=== PATIENT | female | born 1980 | race Caucasian/White ===

== ENCOUNTER 2016-06-12 03:04 | Inpatient (IN) | payer BC ==
[2016-06-12] VITALS (7 sets, daily range): BP systolic 94–138; BP diastolic 48–80
[~2016-06-12] VITALS: Ht 162.6 cm; Wt 63.5 kg
[~2016-06-12 03:04] MED LIST: NKM
[2016-06-12] MEDS ORDERED: LORazepam Inj 2mg/ml 1ml ONE (03:21)
[2016-06-12] MEDS ORDERED: NS 250 ML IV ONE (03:23)
[2016-06-12] MEDS ORDERED: LORazepam Inj 2mg/ml 1ml IV ONE ×2 (03:30→06:15)
[2016-06-12 03:49] LABS: BASOPHILS % (AUTO) 1.5 % (0.0-2.0); EOSINOPHILS % (AUTO) 3.8 % (0.0-3.0); LYMPHOCYTES % (AUTO) 25.9 % (20.0-45.0); MEAN CORPUSCULAR HEMOGLOBIN 31.1 PG (27.0-31.0); MEAN CORPUSCULAR HGB CONC 34.8 G/DL (32.0-36.0); MEAN CORPUSCULAR VOLUME 89 FL (80-99); MEAN PLATELET VOLUME 6.8 FL (6.5-10.1); MONOCYTES % (AUTO) 7.8 % (1.0-10.0); PLATELET COUNT 234 K/UL (150-450); RED BLOOD COUNT 4.19 M/UL (4.20-5.40); RED CELL DISTRIBUTION WIDTH 10.9 % (11.6-14.8); WHITE BLOOD COUNT 7.1 K/UL (4.8-10.8)
[2016-06-12 03:52] LABS: ALANINE AMINOTRANSFERASE 11 U/L (3-33); ALBUMIN/GLOBULIN RATIO 1.5 (1.0-2.7); ANION GAP 21 (5-15); ASPARTATE AMINO TRANSFERASE 24 U/L (5-40); CALCIUM 8.2 mg/dL (8.6-10.2); CARBON DIOXIDE 16 mEQ/L (20-30); CHLORIDE 89 mEQ/L (98-107); CREATININE 0.7 mg/dL (0.5-0.9); GLOMERULAR FILTRATION RATE > 60 mL/min (>60); HEMOLYSIS 93; POTASSIUM 4.1 mEQ/L (3.4-4.9); SODIUM 126 mEQ/L (135-145); TOTAL PROTEIN 5.9 g/dL (6.6-8.7)
--- NOTE | 2016-06-12 04:38 | Emergency Room Report ---
History of Present Illness General Chief Complaint: Seizure Source: Patient, Family Member Present Illness HPI 35YOF presents with 2 witnessed seizures, 12:45am and 3am, witnessed by partner. Started with hand jerking, progressed to foaming at mouth, rigidity, eyes rolling. Patient has had a seizure "in years." Had been previously weaned off Seizure medications by PMD. Denies drinking ETOH, other drug use. Denies incontinence, trauma, tongue bitting. Currently feels nauseated. Per partner, patient "drank a lot of juice" only today. No food or water. Part of a one-day "cleanse." Allergies: Coded Allergies: No Known Allergies (Unverified , 06/12/16) Patient History Past Medical History: seizures Past Surgical History: none Pertinent Family History: none Social History: Denies: alcohol use, drug use, smoking Last Menstrual Period: last week Now: No Immunizations: UTD Reviewed Nursing Documentation: PMH: Agreed, PSxH: Agreed Nursing Documentation-PMH Past Medical History: No History, Except For Hx Seizures: Yes Review of Systems All Other Systems: negative except mentioned in HPI Physical Exam Vital Signs Date Time Temp Pulse Resp B/P Pulse Ox O2 Delivery O2 Flow Rate FiO2 06/12/16 02:52 98.4 106 16 117/74 99 Room Air Sp02 EP Interpretation: reviewed, normal General Appearance: normal inspection, well appearing, no apparent distress, non-toxic, Postictal Head: normocephalic, atraumatic Eyes: bilateral eye EOMI, bilateral eye PERRL ENT: normal ENT inspection, hearing grossly normal, normal voice Neck: normal inspection, full range of motion, supple, no bony tend Respiratory: normal inspection, lungs clear, normal breath sounds, no respiratory distress, no retraction, no wheezing Cardiovascular #1: regular rate, rhythm, no edema Gastrointestinal: normal inspection, normal bowel sounds, non tender, soft, no guarding, no hernia Genitourinary: no CVA tenderness Musculoskeletal: normal inspection, back normal, normal range of motion, Devyn' s Sign negative Neurologic: normal inspection, alert, responsive, tonal regulator III-XII nml as tested, motor strength/tone normal, speech normal Psychiatric: normal inspection, judgement/insight normal, mood/affect normal Skin: normal inspection Lymphatic: normal inspection Medical Decision Making Diagnostic Impression: Primary Impression: Seizure disorder Additional Impression: Hyponatremia ER Course 35YOF with acute seizure episodes. Known epilepsy history. VSS. Afebrile Patient was post-ictal but started to become tremulous in ED, was given 1mg Ativan Labs notable for hypoNa 126 - likely hyponatremic from increased juice intake and subsequent polyuria Additional NS 1L given in ED Endorsed for tele admission Likely needs to restart Anti epileptic meds, see Neurology Endorsed to Dr Sanchez for tele admit at 538am EKG Diagnostic Results Rate: normal Rhythm: NSR ST Segments: no acute changes ASA given to the pt in ED: No Rhythm Strip Diag. Results EP Interpretation: yes Rate: 83 Rhythm: NSR, no PVC's, no ectopy Last Vital Signs Date Time Temp Pulse Resp B/P Pulse Ox O2 Delivery O2 Flow Rate FiO2 06/12/16 03:49 98.4 84 14 98/68 95 Room Air Status: improved Disposition: ADMITTED INPATIENT Condition: Serious Referrals: NOT CHOSEN IPA/,REFERRING (PCP) HANS GODDARD M.D. Jun 12, 2016 04:38
[2016-06-12 06:05] LABS: APPEARANCE,URINE SLIGHTLY CLOUDY; KETONES,URINE 1+ (NEGATIVE); LEUKOCYTE ESTERASE ,URINE 1+ (NEGATIVE); NITRITE,URINE NEGATIVE (NEGATIVE); PH,URINE 7 (4.5-8.0); PROTEIN,URINE 1+ (NEGATIVE); UROBILINOGEN,URINE NORMAL MG/DL (0.0-1.0)
[2016-06-12] MEDS ORDERED: levETIRAcetam 1,000 MG in D5W 110 ML IVPB STA (06:11)
[2016-06-12] MEDS ORDERED: levETIRAcetam 500mg vial IV ONE ×2 (06:15→06:16)
[2016-06-12 06:17] LABS: BACTERIA,URINE FEW /HPF; RBC,URINE TNTC /HPF (0 - 2); SQUAMOUS EPITHELIAL CELL,UR FEW /LPF (NONE/OCC)
[2016-06-12] MEDS ORDERED: Tubing IV Cassette IV ONE (07:31)
[2016-06-12] MEDS ORDERED: NS 55 ML IV ONE (07:31)
[2016-06-12] MEDS ORDERED: cefTRIAXone 1 GM in D5W 55 ML IVPB ONE (07:45)
[2016-06-12] MEDS ORDERED: LORazepam Inj 2mg/ml 1ml IV PRN (08:30)
[2016-06-12] MEDS ORDERED: Morphine Sulfate 2mg/ml Inj IVP PRN (08:30)
[2016-06-12] MEDS ORDERED: Miralax 17gm pkt ORAL PRN (09:00)
[2016-06-12] MEDS: Heparin 5000 units/ml inj SUBQ SCH ×3 (09:00→22:22)
[2016-06-12] MEDS ORDERED: Mylanta II UD 30ml ORAL PRN (09:00)
[2016-06-12 10:00] LABS: URIC ACID 5.1 mg/dL (3.0-7.5)
[2016-06-12 10:11] LABS: THYROID STIMULATING HORMONE 1.18 uIU/mL (0.300-4.500)
--- NOTE | 2016-06-12 10:43 | Consultation ---
Consult Note Consult Note asked to eval for hypoNatremia Chief Complaint: Seizure 35YOF presents with 2 witnessed seizures, 12:45am and 3am, witnessed by partner. Started with hand jerking, progressed to foaming at mouth, rigidity, eyes rolling. Patient has had a seizure "in years." Had been previously weaned off Seizure medications by PMD. Denies drinking ETOH, other drug use. Denies incontinence, trauma, tongue bitting. Currently feels nauseated. Per partner, patient "drank a lot of juice" only today. No food or water. Part of a one-day "cleanse." Allergies: Coded Allergies: No Known Allergies (Unverified , 06/12/16) Past Medical History: seizures Social History: Denies: alcohol use, drug use, smoking Last Menstrual Period: last week Now: No Past Medical History: No History, Except For Hx Seizures: Yes Assessment/Plan HypoNatremia likely depletional Sz Plan: U na U Os Serum Uric acid saline infusion check Mag per Neuro Urine tox NEGATIVE RAVINDRA JOHNSON Jun 12, 2016 10:42
--- NOTE | 2016-06-12 12:17 | Neurology Progress Note ---
Objective Physical Exam Last Vital Signs Date Time Temp Pulse Resp B/P Pulse Ox O2 Delivery O2 Flow Rate FiO2 06/12/16 08:37 97.9 104 18 117/80 99 Room Air 06/12/16 07:17 2.0 Laboratory Tests Test 06/12/16 03:15 06/12/16 05:01 06/12/16 08:30 White Blood Count 7.1 K/UL (4.8-10.8) Red Blood Count 4.19 M/UL (4.20-5.40) L Hemoglobin 13.1 G/DL (12.0-16.0) Hematocrit 37.5 % (37.0-47.0) Mean Corpuscular Volume 89 FL (80-99) Mean Corpuscular Hemoglobin 31.1 PG (27.0-31.0) H Mean Corpuscular Hemoglobin Concent 34.8 G/DL (32.0-36.0) Red Cell Distribution Width 10.9 % (11.6-14.8) L Platelet Count 234 K/UL (150-450) Mean Platelet Volume 6.8 FL (6.5-10.1) Neutrophils (%) (Auto) 61.0 % (45.0-75.0) Lymphocytes (%) (Auto) 25.9 % (20.0-45.0) Monocytes (%) (Auto) 7.8 % (1.0-10.0) Eosinophils (%) (Auto) 3.8 % (0.0-3.0) H Basophils (%) (Auto) 1.5 % (0.0-2.0) Sodium Level 126 mEQ/L (135-145) L Potassium Level 4.1 mEQ/L (3.4-4.9) Chloride Level 89 mEQ/L (98-107) L Carbon Dioxide Level 16 mEQ/L (20-30) L Anion Gap 21 (5-15) H Blood Urea Nitrogen 4 mg/dL (7-23) L Creatinine 0.7 mg/dL (0.5-0.9) Estimat Glomerular Filtration Rate > 60 mL/min (>60) Glucose Level 120 mg/dL (74-106) H Calcium Level 8.2 mg/dL (8.6-10.2) L Total Bilirubin 0.6 mg/dL (0.0-1.2) Aspartate Amino Transf (AST/SGOT) 24 U/L (5-40) Alanine Aminotransferase (ALT/SGPT) 11 U/L (3-33) Alkaline Phosphatase 28 U/L (35-104) L Total Protein 5.9 g/dL (6.6-8.7) L Albumin 3.6 g/dL (3.5-5.2) Globulin 2.3 g/dL Albumin/Globulin Ratio 1.5 (1.0-2.7) Urine Color Pale yellow Urine Appearance Slightly cloudy Urine pH 7 (4.5-8.0) Urine Specific [place] 1.010 (1.005-1.035) Urine Protein 1+ (NEGATIVE) H Urine Glucose (UA) Negative (NEGATIVE) Urine Ketones 1+ (NEGATIVE) H Urine Occult Blood 5+ (NEGATIVE) H Urine Nitrite Negative (NEGATIVE) Urine Bilirubin Negative (NEGATIVE) Urine Urobilinogen Normal MG/DL (0.0-1.0) Urine Leukocyte Esterase 1+ (NEGATIVE) H Urine RBC Tntc /HPF (0 - 2) H Urine WBC 5-10 /HPF (0 - 2) H Urine Squamous Epithelial Cells Few /LPF (NONE/OCC) Urine Bacteria Few /HPF (NONE) Urine HCG, Qualitative Negative Urine Opiates Screen Negative (NEGATIVE) Urine Barbiturates Screen Negative (NEGATIVE) Phencyclidine (PCP) Screen Negative (NEGATIVE) Urine Amphetamines Screen Negative (NEGATIVE) Urine Benzodiazepines Screen Negative (NEGATIVE) Urine Cocaine Screen Negative (NEGATIVE) Urine Marijuana (THC) Screen Negative (NEGATIVE) Plasma/Serum Osmolality Pending Uric Acid 5.1 mg/dL (3.0-7.5) Magnesium Level 1.8 mg/dL (1.7-2.5) Thyroid Stimulating Hormone (TSH) 1.180 uIU/mL (0.300-4.500) Free Thyroxine 1.04 ng/dL (0.86-1.85) Free Triiodothyronine Pending Cortisol Pending Impression/Recommendations Problems: (1) Seizure disorder (2) Hyponatremia Status: unchanged Recommendations # [id number] CHELITA WILSON Jun 12, 2016 12:17
[2016-06-12 12:23] LABS: APPEARANCE,URINE CLEAR; KETONES,URINE 2+ (NEGATIVE); LEUKOCYTE ESTERASE ,URINE NEGATIVE (NEGATIVE); NITRITE,URINE NEGATIVE (NEGATIVE); PH,URINE 7 (4.5-8.0); PROTEIN,URINE NEGATIVE (NEGATIVE); UROBILINOGEN,URINE NORMAL MG/DL (0.0-1.0)
[2016-06-12 12:39] LABS: BACTERIA,URINE FEW /HPF; SQUAMOUS EPITHELIAL CELL,UR FEW /LPF (NONE/OCC); WBC,URINE 0-2 /HPF (0 - 2)
--- NOTE | 2016-06-12 15:29 | History and Physical ---
History of Present Illness General Date patient seen: Jun 12, 2016 Reason for Hospitalization: Seizure Present Illness HPI 35year old female with pmhx of seizures, off meds for some time now presented to ER with 2 witnessed seizures witnessed by partner. Denies drinking ETOH, other drug use. Denies incontinence, trauma, tongue bitting. Currently feels nauseated. She had seizures in Er as well. She is admitted to telemetry for evaluation and management of her seizures. Allergies: Coded Allergies: No Known Allergies (Unverified , 06/12/16) Medication History Scheduled No Known Medications* (NKM - No Known Medications*), 0 ., (Reported) Patient History Healthcare decision maker pt alert and oriented x4 Resuscitation status Full Code Advanced Directive on File Past Medical/Surgical History Past Medical/Surgical History: (1) Seizure disorder Review of Systems All Other Systems: negative except mentioned in HPI Physical Exam General Appearance: WD/WN, no apparent distress Lines, tubes and drains: peripheral, central line HEENT: normocephalic, atraumatic Neck: non-tender, normal alignment Respiratory/Chest: chest wall non-tender, lungs clear Cardiovascular/Chest: normal peripheral pulses, normal rate Abdomen: normal bowel sounds, non tender Genitourinary/Rectal: normal genital exam Extremities: normal range of motion Skin Exam: normal pigmentation Last 24 Hour Vital Signs Date Time Temp Pulse Resp B/P Pulse Ox O2 Delivery O2 Flow Rate FiO2 06/12/16 12:40 98.8 107 18 99/64 99 Room Air 06/12/16 08:37 97.9 104 18 117/80 99 Room Air 06/12/16 07:17 98.4 93 14 138/70 99 Nasal Cannula 2.0 06/12/16 06:34 98.4 93 14 138/70 99 Nasal Cannula 2.0 06/12/16 03:49 98.4 84 14 98/68 95 Room Air 06/12/16 03:45 106 16 Room Air 06/12/16 02:52 98.4 106 16 117/74 99 Room Air Laboratory Tests Test 06/12/16 03:15 06/12/16 05:01 06/12/16 08:30 06/12/16 12:00 White Blood Count 7.1 K/UL (4.8-10.8) Red Blood Count 4.19 M/UL (4.20-5.40) L Hemoglobin 13.1 G/DL (12.0-16.0) Hematocrit 37.5 % (37.0-47.0) Mean Corpuscular Volume 89 FL (80-99) Mean Corpuscular Hemoglobin 31.1 PG (27.0-31.0) H Mean Corpuscular Hemoglobin Concent 34.8 G/DL (32.0-36.0) Red Cell Distribution Width 10.9 % (11.6-14.8) L Platelet Count 234 K/UL (150-450) Mean Platelet Volume 6.8 FL (6.5-10.1) Neutrophils (%) (Auto) 61.0 % (45.0-75.0) Lymphocytes (%) (Auto) 25.9 % (20.0-45.0) Monocytes (%) (Auto) 7.8 % (1.0-10.0) Eosinophils (%) (Auto) 3.8 % (0.0-3.0) H Basophils (%) (Auto) 1.5 % (0.0-2.0) Sodium Level 126 mEQ/L (135-145) L Potassium Level 4.1 mEQ/L (3.4-4.9) Chloride Level 89 mEQ/L (98-107) L Carbon Dioxide Level 16 mEQ/L (20-30) L Anion Gap 21 (5-15) H Blood Urea Nitrogen 4 mg/dL (7-23) L Creatinine 0.7 mg/dL (0.5-0.9) Estimat Glomerular Filtration Rate > 60 mL/min (>60) Glucose Level 120 mg/dL (74-106) H Calcium Level 8.2 mg/dL (8.6-10.2) L Total Bilirubin 0.6 mg/dL (0.0-1.2) Aspartate Amino Transf (AST/SGOT) 24 U/L (5-40) Alanine Aminotransferase (ALT/SGPT) 11 U/L (3-33) Alkaline Phosphatase 28 U/L (35-104) L Total Protein 5.9 g/dL (6.6-8.7) L Albumin 3.6 g/dL (3.5-5.2) Globulin 2.3 g/dL Albumin/Globulin Ratio 1.5 (1.0-2.7) Urine Color Pale yellow Pale yellow Urine Appearance Slightly cloudy Clear Urine pH 7 (4.5-8.0) 7 (4.5-8.0) Urine Specific [place] 1.010 (1.005-1.035) 1.015 (1.005-1.035) Urine Protein 1+ (NEGATIVE) H Negative (NEGATIVE) Urine Glucose (UA) Negative (NEGATIVE) Negative (NEGATIVE) Urine Ketones 1+ (NEGATIVE) H 2+ (NEGATIVE) H Urine Occult Blood 5+ (NEGATIVE) H 1+ (NEGATIVE) H Urine Nitrite Negative (NEGATIVE) Negative (NEGATIVE) Urine Bilirubin Negative (NEGATIVE) Negative (NEGATIVE) Urine Urobilinogen Normal MG/DL (0.0-1.0) Normal MG/DL (0.0-1.0) Urine Leukocyte Esterase 1+ (NEGATIVE) H Negative (NEGATIVE) Urine RBC Tntc /HPF (0 - 2) H 2-4 /HPF (0 - 2) H Urine WBC 5-10 /HPF (0 - 2) H 0-2 /HPF (0 - 2) Urine Squamous Epithelial Cells Few /LPF (NONE/OCC) Few /LPF (NONE/OCC) Urine Bacteria Few /HPF (NONE) Few /HPF (NONE) Urine HCG, Qualitative Negative Urine Opiates Screen Negative (NEGATIVE) Urine Barbiturates Screen Negative (NEGATIVE) Phencyclidine (PCP) Screen Negative (NEGATIVE) Urine Amphetamines Screen Negative (NEGATIVE) Urine Benzodiazepines Screen Negative (NEGATIVE) Urine Cocaine Screen Negative (NEGATIVE) Urine Marijuana (THC) Screen Negative (NEGATIVE) Plasma/Serum Osmolality Pending Uric Acid 5.1 mg/dL (3.0-7.5) Magnesium Level 1.8 mg/dL (1.7-2.5) Thyroid Stimulating Hormone (TSH) 1.180 uIU/mL (0.300-4.500) Free Thyroxine 1.04 ng/dL (0.86-1.85) Free Triiodothyronine Pending Cortisol Pending Urine Osmolality Pending Urine Random Sodium 67 mmol/L Height (Feet): 5 Height (Inches): 4.00 Weight (Pounds): 140 Medications Current Medications Medications (Trade) Dose Ordered Sig/Jim Route PRN Reason Start Time Stop Time Status Last Admin Dose Admin Acetaminophen (Tylenol) 650 mg Q4H PRN ORAL fever>100.5 06/12/16 09:00 07/12/16 08:59 Dextrose STAT PRN IV Hypoglycemia 06/12/16 08:30 07/12/16 08:29 Dextrose/ Electrolytes (D5NS W/KCl 20meq 1000ml) 1,000 ml @ 150 mls/hr Q6H40M IV 06/12/16 10:00 07/12/16 09:59 06/12/16 09:17 Heparin Sodium (Porcine) (Heparin 5000 units/ml) 5,000 units EVERY 12 HOURS SUBQ 06/12/16 09:00 07/12/16 08:59 Lamotrigine (LaMICtal) 25 mg Q12HR ORAL 06/12/16 14:30 07/12/16 14:29 06/12/16 15:06 Lorazepam (Ativan 2mg/ml 1ml) 2 mg Q1H PRN IV seizures 06/12/16 08:30 06/19/16 08:29 Morphine Sulfate (Morphine Sulfate) 1 mg Q4H PRN IVP For Pain 06/12/16 08:30 06/19/16 08:29 Ondansetron HCl (Zofran) 4 mg Q6H PRN IVP Nausea & Vomiting 06/12/16 09:00 07/12/16 08:59 Polyethylene Glycol (Miralax) 17 gm HSPRN PRN ORAL Constipation 06/12/16 09:00 07/12/16 08:59 Zolpidem Tartrate (Ambien) 5 mg HSPRN PRN ORAL Insomnia 06/12/16 21:00 07/12/16 20:59 Assessment/Plan Problem List: (1) Seizure disorder ICD Codes: G40.909 - Epilepsy, unspecified, not intractable, without status epilepticus SNOMED: 643011227 (2) Hyponatremia ICD Codes: E87.1 - Hypo-osmolality and hyponatremia SNOMED: 13539185 Assessment/Plan EEG neuro evaluation hyponatremia work up Ns check electrolytes in HOLLEY Tobin Jun 12, 2016 15:29
--- NOTE | 2016-06-12 15:54 | Diagnostic Imaging Report ---
Indications: Mental status Technique: Sagittal and axial T1 weighted fast spin-echo, axial T2-weighted fat saturated fast spin echo, T2-weighted FLAIR, T2*-weighted gradient echo, and diffusion sequences of the brain were performed prior to IV gadolinium administration. Axial and coronal T1 weighted fast spin-echo was performed following IV gadolinium administration. Findings: Comparison: None OSHA artifact degrades all images. A few small circumscribed foci of T2 signal hyperintensity are scattered throughout the bilateral cerebral periventricular white matter. 3 mm circumscribed focus of signal change/parenchymal loss in the deep white matter of the left parietal lobe. No evidence of mass or hemorrhage, other signal abnormality, mass effect, midline shift, hydrocephalus, or increased intracranial pressure. No restricted diffusion. No abnormal enhancement. Central vascular flow voids preserved. The periosteal thickening bilateral ethmoid sinuses. IMPRESSION: Foci of T2 signal hyperintensity bilateral periventricular white matter, nonspecific, may be chronic microangiopathic or demyelinating in nature Small focus of signal change isointense to cerebral spinal fluid left parietal deep white matter most likely focally prominent perivascular space. Focal chronic encephalomalacia part of previous insult not excludable. Paranasal sinusitis
[2016-06-12 16:47] LABS: ALANINE AMINOTRANSFERASE 10 U/L (3-33); ALBUMIN/GLOBULIN RATIO 1.5 (1.0-2.7); ANION GAP 12 (5-15); ASPARTATE AMINO TRANSFERASE 19 U/L (5-40); CALCIUM 7.7 mg/dL (8.6-10.2); CARBON DIOXIDE 21 mEQ/L (20-30); CHLORIDE 99 mEQ/L (98-107); CREATININE 0.5 mg/dL (0.5-0.9); GLOMERULAR FILTRATION RATE > 60 mL/min (>60); HEMOLYSIS 2; POTASSIUM 4.2 mEQ/L (3.4-4.9); SODIUM 132 mEQ/L (135-145); TOTAL PROTEIN 5.8 g/dL (6.6-8.7)
--- NOTE | 2016-06-12 19:47 | Consultation ---
DATE OF CONSULTATION: 06/12/2016 NEUROLOGICAL CONSULTATION CONSULTING PHYSICIAN: Wilton Tran M.D. REFERRING PHYSICIAN: Spencer Sanchez M.D. HISTORY OF PRESENT ILLNESS: This is a 35-year-old female, seen in neurological consultation to evaluate the exacerbation of seizure disorder. According to the patient and her known that three years ago after three days of "juicing", she had episodes of generalized clonic-tonic seizure. This happened in [place], she was seen in a local hospital, and upon examination, which included electroencephalogram, she was placed on anticonvulsant, Keppra. The Keppra was well tolerated initially, but then appears it affected her mood. She became angry, intolerance, which was unusual. The medication was stopped and changed for Topamax. Topamax was well-tolerated, although the last few months, she started to develop some memory issues and she got in July and August of 2015, she has stopped taking medication. There was no further paroxysmal events until last night when around 12:45 a.m., she had a generalized seizure, which started with hand jerking progressing to whole body folding for mild biting her lips and eyes rolling, there was another episode " three hours later," during this the patient was brought to the emergency room, and in the emergency room she reported the patient was juicing for one day. There was no food or water taking except that. This was taken for "cleansing" the body. On admission, heart rate 106, temperature 98.4 degrees, blood pressure 117/74, her initial laboratory work included normal CBC study, urinalysis with WBCs 5 to 10, RBCs too numerous to count, 1+ leukocyte esterase and 1+ protein. Toxicology panel was negative. Chemistry panel with sodium 126, chloride 89, anion gap of 21, blood sugar 120, and total protein 5.9. Following admission, the patient was postictal, slowly responding, there are no lateralizing findings detected, and she become somewhat tremulous and was given 1 mg of Ativan, normal saline 1 liter was given: EKG normal, CBC normal sinus rhythm. While under observation, she had another episode at 6:13 a.m., at that point, she was given additional 2 mg of IV Ativan and was loaded with 1 g of Keppra gradually becoming more responsive. PAST MEDICAL HISTORY: The patient denies any major medical problems. She is not on any treatment. She is not using the control pills. The history is limited only to single episode of seizure activities three years ago. FAMILY HISTORY: Noncontributory. No seizure activities in the family. REVIEW OF SYSTEMS: The patient is now groggy, not complete historian, but indicating that she feels severe tiredness, but denies headache and dizziness. Denies chest pain or palpitations. No respiratory difficulties. Denies abdominal pain or discomfort. No urine or bowel incontinence. PHYSICAL EXAMINATION: GENERAL: A well-developed and well-nourished female, not in acute distress, lying comfortably in bed, asleep. VITAL SIGNS: Her vital signs are stable. Blood pressure 117/80 and heart rate of 104. HEENT: Head is normocephalic. No evidence of trauma. There is a swollen upper lip. MUSCULOSKELETAL: Unremarkable. There is no deformities. Peripheral pulses 1+ symmetric. MENTAL STATUS: The patient is drowsy, but arousable, coherent, slowly responses, and somewhat irritable. Providing with appropriate history. CRANIAL NERVE II: Pupils both responding to light and accommodation. Extraocular movement intact. No nystagmus. CRANIAL NERVE V: Normal corneal responses. CRANIAL NERVE VII: No facial asymmetry. CRANIAL NERVE VIII: Normal hearing. CRANIAL NERVE IX THROUGH XII: With normal limits. MOTOR EXAMINATION: Normal muscle tone and strength 5/5 in all extremities. No involuntary movement. Deep reflexes 1+ symmetric with downgoing toes on both sides. SENSORY EXAMINATION: Normal to pinprick and light touch. Gait not tested, but reported to stable. IMPRESSION: 1. Chronic seizure disorder, exacerbation. 2. Hyponatremia. DISCUSSION: The patient had both episodes of seizure activities preceded by "juicing," apparently hyponatremia has some triggering effect on the seizure activities. The patient is not driving. She was revoked her driving license three years ago. This is back, but she is not driving. Her previous workup did not include radiological studies. I will obtain MRI of the brain, we will recheck the EEG, the patient to start on anticonvulsants, I think anticonvulsants preferably Lamictal give low teratogenic effect, full disclosure of side effects including Bustamante-Levon syndrome was described to the patient and her and accepted. The patient will be reassessed upon completion of workup. Thank you for allowing me to see this interesting patient in neurological consultation. Wilton Alvaro Tran DR: Tessy JOB#: [id number] CC:
[2016-06-12] MEDS ORDERED: Zolpidem 5mg tab ORAL PRN (21:00)
[2016-06-13 03:50] VITALS: BP 109/59
[2016-06-13 05:13] LABS: CORTISOL LC 26.4 ug/dL (.)
[2016-06-13 06:13] LABS: FREE TRIIODOTHYRONINE 2.7 pg/mL (2.0-4.4)
[2016-06-13 07:41] VITALS: BP 98/61
[2016-06-13 07:48] LABS: BASOPHILS % (AUTO) 1.1 % (0.0-2.0); EOSINOPHILS % (AUTO) 2.8 % (0.0-3.0); LYMPHOCYTES % (AUTO) 37.8 % (20.0-45.0); MEAN CORPUSCULAR HEMOGLOBIN 30.3 PG (27.0-31.0); MEAN CORPUSCULAR HGB CONC 33.3 G/DL (32.0-36.0); MEAN CORPUSCULAR VOLUME 91 FL (80-99); MEAN PLATELET VOLUME 6.6 FL (6.5-10.1); MONOCYTES % (AUTO) 10.1 % (1.0-10.0); NEUTROPHILS % (AUTO) 48.2 % (45.0-75.0); PLATELET COUNT 209 K/UL (150-450); RED BLOOD COUNT 3.96 M/UL (4.20-5.40); RED CELL DISTRIBUTION WIDTH 11.4 % (11.6-14.8); WHITE BLOOD COUNT 5.5 K/UL (4.8-10.8)
[2016-06-13 08:12] LABS: ALANINE AMINOTRANSFERASE 9 U/L (3-33); ALBUMIN/GLOBULIN RATIO 1.6 (1.0-2.7); ANION GAP 13 (5-15); ASPARTATE AMINO TRANSFERASE 21 U/L (5-40); CALCIUM 7.6 mg/dL (8.6-10.2); CARBON DIOXIDE 20 mEQ/L (20-30); CHLORIDE 108 mEQ/L (98-107); CREATININE 0.6 mg/dL (0.5-0.9); GLOMERULAR FILTRATION RATE > 60 mL/min (>60); HEMOLYSIS 5; POTASSIUM 3.9 mEQ/L (3.4-4.9); SODIUM 141 mEQ/L (135-145); TOTAL PROTEIN 5.3 g/dL (6.6-8.7)
[2016-06-13 08:38] LABS: MAGNESIUM 2.2 mg/dL (1.7-2.5); URIC ACID 3.2 mg/dL (3.0-7.5)
[2016-06-13] MEDS: Heparin 5000 units/ml inj SUBQ SCH (09:00)
--- NOTE | 2016-06-13 10:13 | General Progress Note ---
Assessment/Plan Status: stable Assessment/Plan status: HypoNatremia likely depletional Resolved- Sz Plan: stop IV per Neuro Urine tox NEGATIVE Subjective ROS Limited/Unobtainable: No Allergies: Coded Allergies: No Known Allergies (Unverified , 06/12/16) Objective Last 24 Hour Vital Signs Date Time Temp Pulse Resp B/P Pulse Ox O2 Delivery O2 Flow Rate FiO2 06/13/16 07:41 96.9 98 18 98/61 98 Room Air 06/13/16 04:00 79 06/13/16 03:50 98.6 75 18 109/59 96 Room Air 06/13/16 00:00 82 06/12/16 23:53 98.8 86 17 102/48 96 Room Air 06/12/16 20:09 97.9 87 19 94/55 98 Room Air 06/12/16 20:00 97 06/12/16 16:08 98.1 93 18 96/60 100 Room Air 06/12/16 16:00 91 06/12/16 12:40 98.8 107 18 99/64 99 Room Air 06/12/16 12:00 96 Intake and Output 06/12/16 06/13/16 19:00 07:00 Intake Total 270 ml 1650 ml Balance 270 ml 1650 ml Intake Oral 120 ml IV Total 150 ml 1650 ml # Voids 1 2 Laboratory Tests 06/12/16 12:00: Urine Color Pale yellow, Urine Appearance Clear, Urine pH 7, Urine Specific [place] 1.015, Urine Protein Negative, Urine Glucose (UA) Negative, Urine Ketones 2+H, Urine Occult Blood 1+H, Urine Nitrite Negative, Urine Bilirubin Negative, Urine Urobilinogen Normal, Urine Leukocyte Esterase Negative, Urine RBC 2-4H, Urine WBC 0-2, Urine Squamous Epithelial Cells Few, Urine Bacteria Few , Urine Osmolality [Pending], Urine Random Sodium 67 06/12/16 15:45: Sodium Level 132L, Potassium Level 4.2, Chloride Level 99, Carbon Dioxide Level 21, Anion Gap 12, Blood Urea Nitrogen 3L, Creatinine 0.5, Estimat Glomerular Filtration Rate > 60, Glucose Level 113H, Calcium Level 7.7L, Total Bilirubin 0.5, Aspartate Amino Transf (AST/SGOT) 19, Alanine Aminotransferase (ALT/SGPT) 10, Alkaline Phosphatase 29L, Total Protein 5.8L, Albumin 3.5, Globulin 2.3, Albumin/Globulin Ratio 1.5 06/13/16 07:05: Sodium Level 141, Potassium Level 3.9, Chloride Level 108H, Carbon Dioxide Level 20, Anion Gap 13, Blood Urea Nitrogen 3L, Creatinine 0.6, Estimat Glomerular Filtration Rate > 60, Glucose Level 115H, Calcium Level 7.6L, Total Bilirubin 0.4, Aspartate Amino Transf (AST/SGOT) 21, Alanine Aminotransferase ( ALT/SGPT) 9, Alkaline Phosphatase 27L, Total Protein 5.3L, Albumin 3.3L, Globulin 2.0, Albumin/Globulin Ratio 1.6, White Blood Count 5.5, Red Blood Count 3.96L, Hemoglobin 12.0, Hematocrit 36.0L, Mean Corpuscular Volume 91, Mean Corpuscular Hemoglobin 30.3, Mean Corpuscular Hemoglobin Concent 33.3, Red Cell Distribution Width 11.4L, Platelet Count 209, Mean Platelet Volume 6.6, Neutrophils (%) (Auto) 48.2, Lymphocytes (%) (Auto) 37.8, Monocytes (%) (Auto) 10.1H, Eosinophils (%) (Auto) 2.8, Basophils (%) (Auto) 1.1, Uric Acid 3.2, Phosphorus Level 2.0L, Magnesium Level 2.2, Gamma Glutamyl Transpeptidase 6, Total Creatine Kinase 937H, Vitamin B12 Level 298, Folate [Pending] Height (Feet): 5 Height (Inches): 4.00 Weight (Pounds): 140 General Appearance: no apparent distress Cardiovascular: normal rate Respiratory/Chest: lungs clear Abdomen: soft Edema: no edema noted Arm (L), no edema noted Arm (R), no edema noted Leg (L), no edema noted Leg (R), no edema noted Pedal (L), no edema noted Pedal (R), no edema noted Generalized RAVINDRA JOHNSON Jun 13, 2016 10:13
[2016-06-13 11:14] VITALS: BP 99/58
--- NOTE | 2016-06-13 12:43 | Neurology Progress Note ---
Interim History Interim History ROS Limited/Unobtainable: No Complaints: lip pain Events: stable Objective Physical Exam Last Vital Signs Date Time Temp Pulse Resp B/P Pulse Ox O2 Delivery O2 Flow Rate FiO2 06/13/16 11:14 98.2 87 18 99/58 96 Room Air 06/12/16 07:17 2.0 Laboratory Tests Test 06/12/16 15:45 06/13/16 07:05 Sodium Level 132 mEQ/L (135-145) L 141 mEQ/L (135-145) Potassium Level 4.2 mEQ/L (3.4-4.9) 3.9 mEQ/L (3.4-4.9) Chloride Level 99 mEQ/L (98-107) 108 mEQ/L (98-107) H Carbon Dioxide Level 21 mEQ/L (20-30) 20 mEQ/L (20-30) Anion Gap 12 (5-15) 13 (5-15) Blood Urea Nitrogen 3 mg/dL (7-23) L 3 mg/dL (7-23) L Creatinine 0.5 mg/dL (0.5-0.9) 0.6 mg/dL (0.5-0.9) Estimat Glomerular Filtration Rate > 60 mL/min (>60) > 60 mL/min (>60) Glucose Level 113 mg/dL (74-106) H 115 mg/dL (74-106) H Calcium Level 7.7 mg/dL (8.6-10.2) L 7.6 mg/dL (8.6-10.2) L Total Bilirubin 0.5 mg/dL (0.0-1.2) 0.4 mg/dL (0.0-1.2) Aspartate Amino Transf (AST/SGOT) 19 U/L (5-40) 21 U/L (5-40) Alanine Aminotransferase (ALT/SGPT) 10 U/L (3-33) 9 U/L (3-33) Alkaline Phosphatase 29 U/L (35-104) L 27 U/L (35-104) L Total Protein 5.8 g/dL (6.6-8.7) L 5.3 g/dL (6.6-8.7) L Albumin 3.5 g/dL (3.5-5.2) 3.3 g/dL (3.5-5.2) L Globulin 2.3 g/dL 2.0 g/dL Albumin/Globulin Ratio 1.5 (1.0-2.7) 1.6 (1.0-2.7) White Blood Count 5.5 K/UL (4.8-10.8) Red Blood Count 3.96 M/UL (4.20-5.40) L Hemoglobin 12.0 G/DL (12.0-16.0) Hematocrit 36.0 % (37.0-47.0) L Mean Corpuscular Volume 91 FL (80-99) Mean Corpuscular Hemoglobin 30.3 PG (27.0-31.0) Mean Corpuscular Hemoglobin Concent 33.3 G/DL (32.0-36.0) Red Cell Distribution Width 11.4 % (11.6-14.8) L Platelet Count 209 K/UL (150-450) Mean Platelet Volume 6.6 FL (6.5-10.1) Neutrophils (%) (Auto) 48.2 % (45.0-75.0) Lymphocytes (%) (Auto) 37.8 % (20.0-45.0) Monocytes (%) (Auto) 10.1 % (1.0-10.0) H Eosinophils (%) (Auto) 2.8 % (0.0-3.0) Basophils (%) (Auto) 1.1 % (0.0-2.0) Uric Acid 3.2 mg/dL (3.0-7.5) Phosphorus Level 2.0 mg/dL (2.5-4.8) L Magnesium Level 2.2 mg/dL (1.7-2.5) Gamma Glutamyl Transpeptidase 6 U/L (5-36) Total Creatine Kinase 937 U/L (26-140) H Vitamin B12 Level 298 pg/mL (211-946) Folate Pending General: well developed, well nourished, no acute distress, other - bitten upper lip Head: normocophalic Neck: no rigidity Neurologic Exam Mental Status: awake, alert, oriented x4, normal cognition, good mathematical skills, normal recent memory, normal remote memory, preserved visuospatial function Speech: normal speech, no dysarthia Language: normal language, no aphasia Cranial Nerve II: fundus normal, visual rand, no papilledema Cranial Nerves III, IV, : PERRLA, EOMI, pupils Cranial Nerve V: normal facial sensations, temporales function normal, masseters function normal, pterygoids function normal Cranial Nerve VII: no facial asymmetry, normal facial expressions Cranial Nerve VIII: normal hearing, no nystagmus Cranial Nerve IX: normal palate elevation, gag response Cranial Nerve X: no voice hoarseness Cranial Nerve XI: SCM symmetric, trapezii function normal Cranial Nerve XII: tongue midline, no tongue atrophy/fasciculations Motor System: normal muscle tone, strength 5/5, no involuntary movement, no muscle wasting Sensory: normal pinprick, normal light touch, normal position sense, normal graphesthesia Coordination: normal finger to nose bilaterally, normal heel to lorenzo bilaterally, negative Romberg test Deep Tendon Reflexes: 2+ ankle (L), 2+ ankle (R), 2+ bicep (L), 2+ bicep (R), 2 + brachioradialis (L), 2+ brachioradialis (R), 2+ knee (L), 2+ knee (R), 2+ tricep (L), 2+ tricep (R) Stance: normal Gait: stable, normal regular, heel + toe gait Impression/Recommendations Problems: (1) Seizure disorder (2) Hyponatremia (3) Migraine headache Status: stable Recommendations # [id number] notify DMV lamictal 25mg bid titrate, SE notified. neuro stable to d/c bronson CHELITA WILSON Jun 13, 2016 12:43
[2016-06-13] MEDS ORDERED: Phospha 250 Neutral tab ORAL SCH (13:00)
--- NOTE | 2016-06-13 14:39 | Pulmonology Progress Note ---
Assessment/Plan Problems: (1) Seizure disorder (2) Hyponatremia Assessment/Plan antiseizures are started no more seizures dc home with neurology f/u Subjective ROS Limited/Unobtainable: No Constitutional: Reports: no symptoms HEENT: Repors: no symptoms Allergies: Coded Allergies: No Known Allergies (Unverified , 06/12/16) Objective Last 24 Hour Vital Signs Date Time Temp Pulse Resp B/P Pulse Ox O2 Delivery O2 Flow Rate FiO2 06/13/16 11:14 98.2 87 18 99/58 96 Room Air 06/13/16 07:41 96.9 98 18 98/61 98 Room Air 06/13/16 04:00 79 06/13/16 03:50 98.6 75 18 109/59 96 Room Air 06/13/16 00:00 82 06/12/16 23:53 98.8 86 17 102/48 96 Room Air 06/12/16 20:09 97.9 87 19 94/55 98 Room Air 06/12/16 20:00 97 06/12/16 16:08 98.1 93 18 96/60 100 Room Air 06/12/16 16:00 91 Intake and Output 06/12/16 06/13/16 19:00 07:00 Intake Total 270 ml 1650 ml Balance 270 ml 1650 ml Intake Oral 120 ml IV Total 150 ml 1650 ml # Voids 1 2 General Appearance: WD/WN HEENT: normocephalic, atraumatic Respiratory/Chest: chest wall non-tender, lungs clear Cardiovascular: normal peripheral pulses, normal rate Abdomen: normal bowel sounds, soft, non tender Extremities: no cyanosis Skin: no rash Laboratory Tests 06/12/16 15:45: Sodium Level 132L, Potassium Level 4.2, Chloride Level 99, Carbon Dioxide Level 21, Anion Gap 12, Blood Urea Nitrogen 3L, Creatinine 0.5, Estimat Glomerular Filtration Rate > 60, Glucose Level 113H, Calcium Level 7.7L, Total Bilirubin 0.5, Aspartate Amino Transf (AST/SGOT) 19, Alanine Aminotransferase (ALT/SGPT) 10, Alkaline Phosphatase 29L, Total Protein 5.8L, Albumin 3.5, Globulin 2.3, Albumin/Globulin Ratio 1.5 06/13/16 07:05: Sodium Level 141, Potassium Level 3.9, Chloride Level 108H, Carbon Dioxide Level 20, Anion Gap 13, Blood Urea Nitrogen 3L, Creatinine 0.6, Estimat Glomerular Filtration Rate > 60, Glucose Level 115H, Calcium Level 7.6L, Total Bilirubin 0.4, Aspartate Amino Transf (AST/SGOT) 21, Alanine Aminotransferase ( ALT/SGPT) 9, Alkaline Phosphatase 27L, Total Protein 5.3L, Albumin 3.3L, Globulin 2.0, Albumin/Globulin Ratio 1.6, White Blood Count 5.5, Red Blood Count 3.96L, Hemoglobin 12.0, Hematocrit 36.0L, Mean Corpuscular Volume 91, Mean Corpuscular Hemoglobin 30.3, Mean Corpuscular Hemoglobin Concent 33.3, Red Cell Distribution Width 11.4L, Platelet Count 209, Mean Platelet Volume 6.6, Neutrophils (%) (Auto) 48.2, Lymphocytes (%) (Auto) 37.8, Monocytes (%) (Auto) 10.1H, Eosinophils (%) (Auto) 2.8, Basophils (%) (Auto) 1.1, Uric Acid 3.2, Phosphorus Level 2.0L, Magnesium Level 2.2, Gamma Glutamyl Transpeptidase 6, Total Creatine Kinase 937H, Vitamin B12 Level 298, Folate [Pending] Current Medications Medications (Trade) Dose Ordered Sig/Jim Route PRN Reason Start Time Stop Time Status Last Admin Dose Admin Acetaminophen (Tylenol) 650 mg Q4H PRN ORAL fever>100.5 06/12/16 09:00 07/12/16 08:59 06/13/16 08:35 Dextrose (Dextrose 50%) STAT PRN IV Hypoglycemia 06/12/16 08:30 07/12/16 08:29 Ibuprofen (Advil) 400 mg Q6HR PRN ORAL for pain 06/13/16 12:45 07/13/16 12:44 06/13/16 12:54 Lamotrigine (LaMICtal) 25 mg Q12HR ORAL 06/12/16 14:30 07/12/16 14:29 06/13/16 08:34 Ondansetron HCl (Zofran) 4 mg Q6H PRN IVP Nausea & Vomiting 06/12/16 09:00 07/12/16 08:59 Phosphorus (Phospha 250 Neutral) 250 mg THREE TIMES A DAY ORAL 4/26/17 13:00 07/13/16 12:59 06/13/16 12:53 Polyethylene Glycol (Miralax) 17 gm HSPRN PRN ORAL Constipation 06/12/16 09:00 07/12/16 08:59 Zolpidem Tartrate (Ambien) 5 mg HSPRN PRN ORAL Insomnia 06/12/16 21:00 07/12/16 20:59 HOLLEY MARY Jun 13, 2016 14:39
--- NOTE | 2016-06-13 18:58 | Electroencephalogram ---
DATE OF PROCEDURE: 06/12/2016 REQUESTING PHYSICIAN: Spencer Sanchez M.D. HISTORY OF PRESENT ILLNESS: This is a 35-year-old female with exacerbation of seizure activities, now with hyponatremia, and started on treatment with Lamictal. EEG was done using 18 electrodes placed scalp to scalp, scalp to ear montages according to 10/20 [employer] System. During the recording, the patient described as being poorly cooperative, appeared to be sleepy, but normal mentality, noticed awake, drowsy, or asleep stages. Brief epochs of awakening captured by low to medium voltage of 7 to 8 cycles per second activities bilaterally with good response to physiological stimulation. Most of the recording, the patient appeared to be asleep with appearance of further disorganization at theta range often combined with a fast voltage beta activities bilaterally. No asymmetry from side to side. There were no spike or wave activities noted. Photic stimulation was obtained, result no significant changes. Hyperventilation not performed. IMPRESSION: Mildly abnormal EEG in presence of mild diffuse slowing with photic stimulation and sleep stage 1 and 2. COMMENT: The patient appears excessively drowsy or asleep during this recording with a brief most wakeful portions of recording, still indicating slowness in the range 7 to 8 hertz. There were no evidence of paroxysmal seizure activities. Absence of paroxysmal event on a single recording should not rule out seizure disorder. clinically relevant, obtain repeat sleep-deprived EEG with photic stimulation with hyperventilation. Wilton Tran M.D. DR: CRISTIAN JOB#: [id number] CC:
--- NOTE | 2016-06-14 13:47 | Discharge Summary ---
Discharge Summary Hospital Course Date of Admission Jun 12, 2016 at 04:39 Date of Discharge Jun 13, 2016 at 14:15 Admitting Diagnosis seizures HPI Sendy Hendricks is a 35 year old female who was admitted on Jun 12, 2016 at 04 :39 for Seizures Hospital Course [id number] Discharge Discharge Disposition Patient was discharged to Home (01) Discharge Diagnoses: Jayne Mane NP Jun 14, 2016 13:47
--- NOTE | 2016-06-14 23:28 | Discharge Summary 2 SIG ---
DATE OF ADMISSION: 06/12/2016 DATE OF DISCHARGE: 06/13/2016 CONSULTANTS: 1. Krish Greene M.D. 2. Wilton Tran M.D. BRIEF HOSPITAL COURSE: The patient is a 35-year-old female with a history of seizure disorder and and has been off medications for some time, presented to ED with two witnessed seizure activities as witnessed by the partner. She denied any drinking or drug use. She also had seizures while at ED, where she was given IV Ativan. On evaluation, labs were notable for hyponatremia. She was given IV hydration. The patient was admitted to telemetry for further evaluation and was loaded with Keppra. She was seen by Dr. Tran. Per history from the , three years ago the patient had an episode of generalized clonic-tonic seizure after an episode of juicing and body cleansing and was admitted to a hospital and was started on Keppra. Keppra was well tolerated initially, but then it affected her mood and she became angry and intolerant, which was unusual. The medication was stopped and was changed to Topamax. Topamax was well tolerated until the last few months she started to develop memory issues and stopped taking the medications. She went on again with her one-day juicing for body cleansing and again noted seizure episodes. The patient was started on anticonvulsants, on Lamictal. She had an EEG done and showed abnormal EEG with mild diffuse slowing with photic stimulation in sleep stage [address] Greene was consulted for evaluation of hyponatremia. She was given saline infusion. Urine toxicology was negative. Urine osmolality and sodium were normal. Electrolytes improved. The patient did not have any active seizure. She was discharged home advised to follow up with PMD. FINAL DIAGNOSES: 1. Acute on chronic seizure disorder with exacerbation. 2. Hyponatremia. Spencer Sanchez M.D. I have been assigned to dictate discharge summary on this account and I was not involved in the patient's management. Jayne Mane N.P. DR: PRERNA JOB#: [id number] CC: CLARI
== END 2016-06-13 14:15 | disposition home or self-care (01) | DRG 101 ==
LOC: EDBD 03:04 → EMR 04:06 → 2E 04:39 → EDBEDREQ 06:10
DX: G40.909 Epilepsy, unspecified, not intractable, without status epilepticus (principal); E87.1 Hypo-osmolality and hyponatremia; G43.909 Migraine, unspecified, not intractable, without status migrainosus
CPT/HCPCS: 36415; 70553; 80053; 80300; 81001; 81003; 81025; 82533; 82550; 82607; 82746; 82962; 82977; 83735; 83930; 83935; 84100; 84300; 84439; 84443; 84481; 84550; 85025; 95819; A9585; C9399